=== PATIENT | female | born 1950 | race Two or more races ===

== ENCOUNTER 2020-05-05 09:00 | Inpatient (IN) | payer OTHER ==
[~2020-05-05] VITALS: Ht 157.5 cm; Wt 63.5 kg
[2020-05-05] MEDS ORDERED: JANUMET XR 50-1 EAC1 PO (09:45)
[2020-05-05] MEDS ORDERED: METFORMIN HCL500 M3 PO (09:46)
[2020-05-05] MEDS ORDERED: LEVOTHYROXINE25 MCG PO (09:46)
[2020-05-09] MEDS ORDERED: METFORMIN HCL500 M4 PO (08:23)
[2020-05-09] MEDS ORDERED: ANTIFUNGAL113 GM (08:23)
[2020-05-09] MEDS ORDERED: LEVO-T50 MCG PO (08:23)
[2020-05-11] MEDS ORDERED: XARELTO10 MG PO (06:54)
[2020-05-11] MEDS ORDERED: OXYC1TAB9 PO (06:54)
[2020-05-11] MEDS ORDERED: BACTRIM DS TAB1 EACH PO (06:54)
[2020-05-11] MEDS ORDERED: INTEGRA PLUS C1 EACH PO (06:54)
== END 2020-05-11 10:12 | DRG 470 ==
LOC: SURH 05-09 05:35 → O/R 05-09 05:35 → SURH 05-09 09:00
PROVIDERS: ADMIT Orthopaedic Surgery Sports Medicine; ATTEND Orthopaedic Surgery Sports Medicine
PROC: 0SRD0J9 Replacement of Left Knee Joint with Synthetic Substitute, Cemented, Open Approach (ICD-10-PCS; principal; 2020-05-09 09:30)
DX: M17.12 Unilateral primary osteoarthritis, left knee (principal); E11.9 Type 2 diabetes mellitus without complications; E03.9 Hypothyroidism, unspecified

== ENCOUNTER 2020-07-04 06:00 | Day surgery (SDC) | payer OTHER ==
[~2020-07-04 06:00] MED LIST: ANTIFUNGAL113 GM; BACTRIM DS TAB1 EACH PO; INTEGRA PLUS C1 EACH PO; JANUMET XR 50-1 EAC1 PO; LEVO-T50 MCG PO; LEVOTHYROXINE25 MCG PO; METFORMIN HCL500 M3 PO; METFORMIN HCL500 M4 PO; OXYC1TAB9 PO; XARELTO10 MG PO
[2020-07-04] MEDS ORDERED: DUI500 PO (09:24)
[2020-07-04] MEDS ORDERED: OXYC1TAB9 PO (09:24)
== END 2020-07-04 11:15 | disposition home or self-care (01) ==
LOC: CIR.AMB 06:00
PROVIDERS: ATTEND Orthopaedic Surgery Sports Medicine
DX: M24.562 Contracture, left knee (principal); M24.662 Ankylosis, left knee; Z20.828 Contact with and (suspected) exposure to other viral communicable diseases